=== PATIENT | female | born 1975 | race Caucasian/White ===

== ENCOUNTER 2016-10-29 13:11 | Emergency (ER) | payer BC, MEDICAID ==
--- NOTE | 2016-10-29 13:55 | EDM.PDOC ---
ED HPI GENERAL MEDICAL PROBLEM - General Chief Complaint: Skin Complaint Stated Complaint: [id number] SWOLLEN HAND INFECTION Time Seen by Provider: 10/29/16 13:40 Source of Information: Reports: Patient, RN, RN Notes Reviewed History Limitations: Reports: No Limitations - History of Present Illness INITIAL COMMENTS - FREE TEXT/NARRATIVE: C/O infection with pain and swelling to left dorsal hand. Onset approx. 3 days ago from an insect bite. Denies fever or chills. Denies axillary LAD. Has had a small amt. of yellow pus drainage. Onset: Gradual Duration: Getting Worse Location: Reports: Upper Extremity, Left Quality: Reports: Ache Severity: Moderate Improves with: Reports: None Worsens with: Reports: None Associated Symptoms: Reports: No Other Symptoms - Related Data Allergies Allergy/AdvReac Type Severity Reaction Status Date / Time No Known Allergies Allergy Verified 05/10/13 15:54 Past Medical History - Past Health History Medical/Surgical History: Denies Medical/Surgical History Respiratory History: Reports: Asthma Social & Family History - Family History Family Medical History: Noncontributory - Tobacco Use Smoking Status *Q: Never Smoker Second Hand Smoke Exposure: No - Caffeine Use Caffeine Use: Reports: Soda - Recreational Drug Use Recreational Drug Use: No - Living Situation & Occupation Living situation: Reports: with Family Occupation: Employed ED ROS GENERAL - Review of Systems Review Of Systems: ROS reveals no pertinent complaints other than HPI. ED EXAM, SKIN/RASH Exam: See Below Exam Limited By: No Limitations General Appearance: Alert, WD/WN, No Apparent Distress, Obese Throat/Mouth: Normal Inspection Head: Atraumatic, Normocephalic Neck: Normal Inspection, Supple, Non-Tender, Full Range of Motion Respiratory/Chest: No Respiratory Distress Cardiovascular: Regular Rate, Rhythm Extremities: Increased Warmth (dorsum of left hand with 3.5cm misbah. tender, swollen, nonfluctuant area with a 1cm round purulent yellow ulcerated center lesion without active drainage), Redness Neurological: Alert, Oriented, No Motor/Sensory Deficits Course - Orders/Labs/Meds Orders: Active Orders 24 hr Category Date Time Status CULTURE WOUND [RM] Stat Lab 10/29/16 13:49 Ordered Departure - Departure Time of Disposition: 13:56 Disposition: Home, Self-Care 01 Condition: good Clinical Impression: Infected insect bite of left hand Qualifiers: Encounter type: initial encounter Qualified Code(s): S60.562A - Insect bite ( nonvenomous) of left hand, initial encounter; L08.9 - Local infection of the skin and subcutaneous tissue, unspecified; W57.XXXA - Bitten or stung by nonvenomous insect and other nonvenomous arthropods, initial encounter - Discharge Information Instructions: Insect Bite, Hlow-ea-[id number], Cellulitis, Adult, Jnlm-[id number] Additional Instructions: Rx: Cephalexin 500mg Rx: Bactrim DS Rx: Bactroban oint. 2% Follow up in clinic if not improving in 3 days. Return to ER if worse at any time. - My Orders Last 24 Hours: My Active Orders 10/29/16 13:49 CULTURE WOUND [RM] Stat - Assessment/Plan Last 24 Hours: My Active Orders 10/29/16 13:49 CULTURE WOUND [RM] Stat
[2016-10-29 14:21] VITALS: BP 122/80
== END 2016-10-29 14:30 | disposition home or self-care (01) ==
LOC: DL.ED 13:11
DX: S60.562A Insect bite (nonvenomous) of left hand, initial encounter (principal); L08.9 Local infection of the skin and subcutaneous tissue, unspecified; W57.XXXA Bitten or stung by nonvenomous insect and other nonvenomous arthropods, initial encounter
CPT/HCPCS: 87070; 87077; 87186; 99283

== ENCOUNTER 2017-03-25 11:22 | Emergency (ER) | payer BC, MEDICAID ==
--- NOTE | 2017-03-25 12:07 | EDM.PDOC ---
ED HPI GENERAL MEDICAL PROBLEM - General Chief Complaint: Upper Extremity Injury/Pain Stated Complaint: FINGER IS PAINFUL, [id number] Time Seen by Provider: 03/25/17 12:01 Source of Information: Reports: Patient History Limitations: Reports: No Limitations - History of Present Illness INITIAL COMMENTS - FREE TEXT/NARRATIVE: 41 yo female c/o fall yesterday and today w/ right hand and wrist pain Onset Date: 03/24/17 Onset Time: 12:00 Duration: Day(s): Location: Reports: Upper Extremity, Right Quality: Reports: Ache Severity: Moderate Improves with: Reports: Rest Worsens with: Reports: None Context: Reports: Trauma Associated Symptoms: Reports: No Other Symptoms Right Hand Pain Score (Numeric/FACES): 3 - Related Data Allergies Allergy/AdvReac Type Severity Reaction Status Date / Time bee venom protein (honey bee) Allergy Intermediate Hives Verified 03/25/17 12:00 Home Meds: Home Meds EPINEPHrine [Epipen] 0.3 mg IM ONETIME 10/29/16 [History] FLUoxetine [PROzac] 20 mg PO DAILY 10/29/16 [History] Hydrocortisone [Procto-Med Hc] 30 gm TP ASDIRECTED 10/29/16 [History] Omeprazole [Omeprazole] 40 mg PO DAILY 10/29/16 [History] Phentermine HCl 37.5 mg PO ASDIRECTED 10/29/16 [History] Past Medical History - Past Health History Medical/Surgical History: Denies Medical/Surgical History Cardiovascular History: Reports: Hypertension Respiratory History: Reports: Asthma Psychiatric History: Reports: Depression Social & Family History - Family History Family Medical History: Noncontributory - Tobacco Use Smoking Status *Q: Unknown Ever Smoked Second Hand Smoke Exposure: No - Caffeine Use Caffeine Use: Reports: Soda - Recreational Drug Use Recreational Drug Use: No - Living Situation & Occupation Living situation: Reports: with Family Occupation: Employed Review of Systems - Review of Systems Review Of Systems: See Below Constitutional: Reports: No Symptoms Eyes: Reports: No Symptoms Ears: Reports: No Symptoms Nose: Reports: No Symptoms Mouth/Throat: Reports: No Symptoms Respiratory: Reports: No Symptoms Cardiovascular: Reports: No Symptoms GI/Abdominal: Reports: No Symptoms Genitourinary: Reports: No Symptoms Musculoskeletal: Reports: Hand Pain (right proximal), Other (wrist right) Skin: Reports: No Symptoms Neurological: Reports: No Symptoms Psychiatric: Reports: No Symptoms ED EXAM, GENERAL - Physical Exam Exam: See Below Exam Limited By: No Limitations General Appearance: Alert, WD/WN, No Apparent Distress Eye Exam: Bilateral Eye: PERRL Ears: Normal External Exam Nose: Normal Inspection Throat/Mouth: Normal Inspection, Normal Lips Head: Atraumatic, Normocephalic Neck: Normal Inspection, Supple Respiratory/Chest: No Respiratory Distress, Lungs Clear Cardiovascular: Normal Peripheral Pulses, Regular Rate, Rhythm Peripheral Pulses: 2+: Radial (L), Radial (R) GI/Abdominal: Normal Bowel Sounds, Soft Back Exam: Normal Inspection Extremities: Normal Inspection, Limited Range of Motion (right wrist pain w/ flexion and dorsal wrist tenderness) Neurological: Alert, Oriented, CN II-XII Intact, Normal Cognition Psychiatric: Normal Affect Skin Exam: Warm, Dry, Intact Lymphatic: No Adenopathy Course - Vital Signs Last Recorded V/S: Last Vital Signs Temp 36.6 C 03/25/17 11:55 Pulse 93 03/25/17 11:55 Resp 16 03/25/17 11:55 BP 118/83 03/25/17 11:55 Pulse Ox 100 03/25/17 11:55 - Orders/Labs/Meds Meds: Medications Discontinued Medications Generic Name Dose Route Start Last Admin Trade Name Shalomq PRN Reason Stop Dose Admin Acetaminophen 500 mg 03/25/17 12:15 03/25/17 12:39 Tylenol Extra Strength PO 03/25/17 12:16 500 mg ONETIME ONE Administration Departure - Departure Time of Disposition: 13:11 Disposition: Home, Self-Care 01 Condition: Good Clinical Impression: Fall Qualifiers: Encounter type: initial encounter Qualified Code(s): W19.XXXA - Unspecified fall, initial encounter Hand contusion Qualifiers: Encounter type: initial encounter Laterality: right Qualified Code(s): S60.221A - Contusion of right hand, initial encounter Contusion of wrist, right Qualifiers: Encounter type: initial encounter Qualified Code(s): S60.211A - Contusion of right wrist, initial encounter - Discharge Information Forms: ED Department Discharge Additional Instructions: Rest Elevate and Ice Pack TID X 15mins. For Pain Take : TYLENOL ES 500mg QID as needed F/U w/ PCP
[2017-03-25 12:08] VITALS: BP 118/83
[2017-03-25] MEDS ORDERED: Acetaminophen 500 MG Tab PO ONE (12:15)
--- NOTE | 2017-03-25 13:09 | CR ---
CLINICAL HISTORY: 41-year-old female injured in fall yesterday. INTERPRETATION: AP lateral view of the right hand unremarkable except for some early arthritic change s involving the first MCP, all interphalangeal and DIP joints. No sign of right hand fracture or dislocation.
--- NOTE | 2017-03-25 13:10 | CR ---
CLINICAL HISTORY: 41-year-old female injured in fall yesterday. INTERPRETATION: Three views right wrist and distal right forearm confirm some soft tissue swelling bu t... * no sign of underlying fracture/dislocation distal right radius/ulna or carpal bones of the wrist (l arge simple cyst proximal carpal row, triquetrum, noted incidentally). No foreign bodies.
== END 2017-03-25 13:20 | disposition home or self-care (01) ==
LOC: DL.ED 11:22
DX: S60.221A Contusion of right hand, initial encounter (principal); S60.211A Contusion of right wrist, initial encounter; W19.XXXA Unspecified fall, initial encounter; I10 Essential (primary) hypertension; F32.9 Major depressive disorder, single episode, unspecified; Z91.030 Bee allergy status
CPT/HCPCS: 73110; 73120; 99283; A9270

== ENCOUNTER 2020-05-27 19:19 | Emergency (ER) | payer BC ==
[2020-05-27] MEDS ORDERED: Acetaminophen/HYDROcodone 325-10 MG Tab PO ONE (19:20)
[2020-05-27 20:57] VITALS: BP 148/98; PULSE 106
[2020-05-27] MEDS: Ibuprofen 600 MG Tab PO ONE (21:08)
--- NOTE | 2020-05-27 21:46 | EDM.PDOC ---
ED HPI GENERAL MEDICAL PROBLEM - General Chief Complaint: Lower Extremity Injury/Pain Stated Complaint: LEFT ANKLE TWISTED ON ICE. Time Seen by Provider: 05/27/20 21:45 Source of Information: Reports: Patient History Limitations: Reports: No Limitations - History of Present Illness INITIAL COMMENTS - FREE TEXT/NARRATIVE: twisted ankle tonight Left Ankle Pain Score (Numeric/FACES): 6 - Related Data Allergies Allergy/AdvReac Type Severity Reaction Status Date / Time bee venom protein (honey bee) Allergy Intermediate Hives Verified 05/27/20 20:52 Home Meds: Home Meds EPINEPHrine [Epipen] 0.3 mg IM ONETIME 10/29/16 [History] FLUoxetine [PROzac] 20 mg PO DAILY 10/29/16 [History] Hydrocortisone [Procto-Med Hc] 30 gm TP ASDIRECTED 10/29/16 [History] Omeprazole 40 mg PO DAILY 10/29/16 [History] Phentermine HCl 37.5 mg PO ASDIRECTED 10/29/16 [History] Past Medical History - Past Health History Medical/Surgical History: Denies Medical/Surgical History Cardiovascular History: Reports: Hypertension Respiratory History: Reports: Asthma Gastrointestinal History: Reports: GERD Psychiatric History: Reports: Depression - Past Surgical History GI Surgical History: Reports: Appendectomy Female Surgical History: Reports: Section, Hysterectomy Musculoskeletal Surgical History: Reports: Carpal Tunnel Social & Family History - Family History Family Medical History: No Pertinent Family History - Tobacco Use Tobacco Use Status *Q: Never Tobacco User Second Hand Smoke Exposure: No - Caffeine Use Caffeine Use: Reports: Soda - Recreational Drug Use Recreational Drug Use: No - Living Situation & Occupation Living situation: Reports: with Family Occupation: Employed Review of Systems - Review of Systems Review Of Systems: Comprehensive ROS is negative, except as noted in HPI. ED EXAM, GENERAL - Physical Exam Exam: See Below Exam Limited By: No Limitations General Appearance: Alert, WD/WN, Mild Distress, Other (discomfort) Ears: Hearing Grossly Normal Throat/Mouth: Normal Voice, No Airway Compromise Head: Atraumatic Neck: Non-Tender, Full Range of Motion Respiratory/Chest: No Respiratory Distress Cardiovascular: Regular Rate, Rhythm GI/Abdominal: Soft, Non-Tender (Female) Exam: Deferred Rectal (Female) Exam: Deferred Extremities: Other (left ankle swollen lateral>, tender R/P, NV wnl, gait limited to pain) Neurological: Alert, Oriented, Normal Cognition, No Motor/Sensory Deficits Psychiatric: Normal Affect, Normal Mood Skin Exam: Warm, Dry, Normal Color Lymphatic: No Adenopathy Course - Vital Signs Last Recorded V/S: Last Vital Signs Temp 36.6 C 05/27/20 20:52 Pulse 106 H 05/27/20 20:52 Resp 21 H 05/27/20 20:52 BP 148/98 H 05/27/20 20:52 Pulse Ox 97 05/27/20 20:52 - Orders/Labs/Meds Meds: Medications Discontinued Medications Generic Name Dose Route Start Last Admin Trade Name Jose PRN Reason Stop Dose Admin Ibuprofen 600 mg 05/27/20 20:58 05/27/20 21:08 Motrin PO 05/27/20 20:59 600 mg ONETIME ONE Administration - Re-Assessments/Exams Free Text/Narrative Re-Assessment/Exam: 05/27/20 22:57 results discussed with pt. Departure - Departure Time of Disposition: 22:57 Disposition: Home, Self-Care 01 Condition: Good Clinical Impression: Ankle sprain Qualifiers: Encounter type: initial encounter Involved ligament of ankle: calcaneofibular ligament Laterality: left Qualified Code(s): S93.412A - Sprain of calcaneofibular ligament of left ankle, initial encounter - Discharge Information Instructions: Ankle Sprain, [id number] Forms: ED Department Discharge Additional Instructions: 1) elevate leg as much as possible next 48 hours 2) see clinic for possible MRI SCAN if no significant improvement by Saturday rx tk; lyndon 10 x 1 Sepsis Event Note (ED) - Evaluation Sepsis Screening Result: No Definite Risk - Focused Exam Vital Signs: Vital Signs Temp Pulse Resp BP Pulse Ox 05/27/20 20:52 36.6 C 106 H 21 H 148/98 H 97
--- NOTE | 2020-05-27 22:49 | CR ---
PROCEDURE INFORMATION: Exam: XR Left Ankle Exam date and time: 05/27/2020 9:00 PM Age: 44 years old Clinical indication: Pain and injury or trauma; Fall; Sprain or strain; Left; Ankle and foot; Injury date: 05/27/20; Additional info: Pain, fall TECHNIQUE: Imaging protocol: XR Left ankle. Views: 3 or more views. COMPARISON: No relevant prior studies available. FINDINGS: Bones/joints: There is a small separate ossification center distal to the tip of the fibula which is probably not acute. No acute fracture is appreciated. The ankle mortise is congruent. No ankle joint effusion is seen. There is a large plantar calcaneal spur. Soft tissues: There is soft tissue swelling. IMPRESSION: No convincing evidence for acute fracture. Follow-up radiographs may be helpful if there is ongoing clinical concern for occult fracture.
[2020-05-27] MEDS ORDERED: Acetaminophen/HYDROcodone 325-10 MG Tab ONE (22:58)
== END 2020-05-27 23:01 | disposition home or self-care (01) ==
LOC: DL.ED 19:19
DX: S93.412A Sprain of calcaneofibular ligament of left ankle, initial encounter (principal); I10 Essential (primary) hypertension; J45.909 Unspecified asthma, uncomplicated; F32.9 Major depressive disorder, single episode, unspecified; K21.9 Gastro-esophageal reflux disease without esophagitis; Z79.899 Other long term (current) drug therapy; Z91.030 Bee allergy status; X50.1XXA Overexertion from prolonged static or awkward postures, initial encounter
CPT/HCPCS: 73610; 99283; A9270; 99282

== ENCOUNTER 2020-09-28 18:25 | Emergency (ER) | payer BC ==
[2020-09-28] MEDS ORDERED: Amoxicillin/Clavulanate K 875-125 MG Tab PO ONE (19:08)
[2020-09-28 19:19] VITALS: BP 139/92; PULSE 86
--- NOTE | 2020-09-28 19:22 | EDM.PDOC ---
ED HPI GENERAL MEDICAL PROBLEM - General Stated Complaint: INJURY TO LEFT THUMB Time Seen by Provider: 09/28/20 19:00 Source of Information: Reports: Patient History Limitations: Reports: No Limitations - History of Present Illness INITIAL COMMENTS - FREE TEXT/NARRATIVE: This 45 yo female patient reports to the ED due to a cat bite to her left thumb that happened yesterday. The patient reports she has noticed increased swelling in the finger since the bite. The patient reports that the cat has not been vaccinated for rabies. Onset Date: 09/27/20 Duration: Day(s): Location: Reports: Upper Extremity, Left Quality: Reports: Ache, Throbbing Severity: Moderate Improves with: Reports: None Worsens with: Reports: None Context: Reports: Other Associated Symptoms: Reports: No Other Symptoms Left Finger-Thumb Pain Score (Numeric/FACES): 7 - Related Data Allergies Allergy/AdvReac Type Severity Reaction Status Date / Time bee venom protein (honey bee) Allergy Intermediate Hives Verified 05/27/20 20:52 Home Meds: Home Meds EPINEPHrine [Epipen] 0.3 mg IM ONETIME 10/29/16 [History] FLUoxetine [PROzac] 20 mg PO DAILY 10/29/16 [History] Hydrocortisone [Procto-Med Hc] 30 gm TP ASDIRECTED 10/29/16 [History] Omeprazole 40 mg PO DAILY 10/29/16 [History] Phentermine HCl 37.5 mg PO ASDIRECTED 10/29/16 [History] Past Medical History - Past Health History Medical/Surgical History: Denies Medical/Surgical History Cardiovascular History: Reports: Hypertension Respiratory History: Reports: Asthma Gastrointestinal History: Reports: GERD Psychiatric History: Reports: Depression - Past Surgical History GI Surgical History: Reports: Appendectomy Female Surgical History: Reports: Section, Hysterectomy Musculoskeletal Surgical History: Reports: Carpal Tunnel Social & Family History - Family History Family Medical History: No Pertinent Family History - Caffeine Use Caffeine Use: Reports: Soda - Living Situation & Occupation Living situation: Reports: with Family Occupation: Employed Review of Systems - Review of Systems Review Of Systems: Comprehensive ROS is negative, except as noted in HPI. ED EXAM, GENERAL - Physical Exam Exam: See Below Exam Limited By: No Limitations General Appearance: Alert, WD/WN, Mild Distress Eye Exam: Bilateral Eye: EOMI, Normal Inspection, PERRL Ears: Normal External Exam, Normal Canal, Hearing Grossly Normal, Normal TMs Nose: Normal Inspection, Normal Mucosa, No Blood Throat/Mouth: Normal Inspection, Normal Lips, Normal Teeth, Normal Gums, Normal Oropharynx, Normal Voice, No Airway Compromise Head: Atraumatic, Normocephalic Neck: Normal Inspection, Supple, Non-Tender, Full Range of Motion Respiratory/Chest: No Respiratory Distress, Lungs Clear, Normal Breath Sounds, No Accessory Muscle Use, Chest Non-Tender Cardiovascular: Normal Peripheral Pulses, Regular Rate, Rhythm, No Edema, No Gallop, No JVD, No Murmur, No Rub GI/Abdominal: Normal Bowel Sounds, Soft, Non-Tender, No Organomegaly, No Distention, No Abnormal Bruit, No Mass (Female) Exam: Deferred Rectal (Female) Exam: Deferred Back Exam: Normal Inspection, Full Range of Motion, NT Extremities: Arm Pain (left thumb ) Neurological: Alert, Oriented, CN II-XII Intact, Normal Cognition, Normal Gait, Normal Reflexes, No Motor/Sensory Deficits Psychiatric: Normal Affect, Normal Mood Skin Exam: Warm, Dry, Other (The patient has bite rogers to her left thumb with erythema to the area. There is no current drainage from the wound and no appearance of an abscess formation at the time of evaluation.) Lymphatic: No Adenopathy Course - Vital Signs Last Recorded V/S: Last Vital Signs Temp 36.2 C 09/28/20 19:10 Pulse 86 09/28/20 19:10 Resp 18 09/28/20 19:10 BP 139/92 H 09/28/20 19:10 Pulse Ox 92 L 09/28/20 19:10 - Orders/Labs/Meds Orders: Active Orders 24 hr Category Date Time Status Vaccines to be Administered [RC] PER UNIT ROUTINE Care 09/28/20 19:24 Ordered Meds: Medications Discontinued Medications Generic Name Dose Route Start Last Admin Trade Name Freq PRN Reason Stop Dose Admin Amoxicillin/Clavulanate Potassium 1 tab 09/28/20 19:08 Amoxicillin/Clavulanate K 875-125 Mg Tab PO 09/28/20 19:09 ONETIME ONE Rabies Immune Globulin 1,900 unit 09/28/20 19:23 Rabies Immune Globulin/Pf 300 Unit/Ml 1 Ml Sdv IM 09/28/20 19:24 ONETIME ONE Rabies Vaccine 2.5 unit 09/28/20 19:23 Rabies Vaccine (Juancarlos) 2.5 Unit Inj Kit IM 09/28/20 19:24 .ONCE ONE Departure - Departure Time of Disposition: 19:10 Disposition: Home, Self-Care 01 Condition: Fair Clinical Impression: Cellulitis Cat bite of left hand Qualifiers: Encounter type: initial encounter Qualified Code(s): S61.452A - Open bite of left hand, initial encounter - Discharge Information *PRESCRIPTION DRUG MONITORING PROGRAM REVIEWED*: Not Applicable *COPY OF PRESCRIPTION DRUG MONITORING REPORT IN PATIENT KRISTA: Not Applicable Instructions: Animal Bite, Adult, [id number], Cellulitis, Adult, [id number] Forms: ED Department Discharge Care Plan Goals: The patient was advised of the examination results during the visit. The patient was given an oral dose of Augmentin (875/125) while in the ED. The patient was discharged with a script for Augmentin (500/125) #20 to take 1 by mouth 2 times per day for 10 days. The patient was encouraged to cover the area with topical antibiotic ointment and a bandaid to protect from any additional infections. The patient was given the first dose of her rabies vaccine today. The patient should return for the remainder of her vaccine scheduled on days 3, 7 and 14. The patient should also return for the injection of her rabies immunoglobin tomorrow (to be brought to the ED by pharmacy tomorrow). The patient was encouraged to take Tylenol or ibuprofen as directed for temporary symptom relief. If the patient has any additional symptoms or concerns, the patient should either return to the emergency department or visit her primary care facility. Sepsis Event Note (ED) - Focused Exam Vital Signs: Vital Signs Temp Pulse Resp BP Pulse Ox 09/28/20 19:10 36.2 C 86 18 139/92 H 92 L - My Orders Last 24 Hours: My Active Orders 09/28/20 19:24 Vaccines to be Administered [RC] PER UNIT ROUTINE - Assessment/Plan Last 24 Hours: My Active Orders 09/28/20 19:24 Vaccines to be Administered [RC] PER UNIT ROUTINE
[2020-09-28] MEDS ORDERED: Rabies Immune Globulin/PF 300 UNIT/ML 1 ML SDV IM ONE (19:23)
[2020-09-28] MEDS ORDERED: Rabies Vaccine (Avian) 2.5 Unit Inj Kit IM ONE (19:23)
== END 2020-09-28 19:52 | disposition home or self-care (01) ==
LOC: DL.ACU 18:25 → DL.ED 18:25 → DL.ACU 19:52
DX: S61.052A Open bite of left thumb without damage to nail, initial encounter (principal); L03.012 Cellulitis of left finger; I10 Essential (primary) hypertension; J45.909 Unspecified asthma, uncomplicated; K21.9 Gastro-esophageal reflux disease without esophagitis; Z79.899 Other long term (current) drug therapy; Z23 Encounter for immunization; Z91.030 Bee allergy status; W55.01XA Bitten by cat, initial encounter
CPT/HCPCS: 90675; 99284; A9270

== ENCOUNTER 2020-11-28 10:28 | Emergency (ER) | payer BC | END 2020-11-28 11:29 | disposition left against medical advice (07) | LOC: DL.ED 10:28 | DX: M79.602 Pain in left arm (principal); Z53.21 Procedure and treatment not carried out due to patient leaving prior to being seen by health care provider ==

== ENCOUNTER 2021-05-03 18:00 | Emergency (ER) | payer BC ==
[2021-05-03 20:08] VITALS: BP 159/94; PULSE 99
--- NOTE | 2021-05-03 20:44 | CR ---
PROCEDURE INFORMATION: Exam: XR Right Hand Exam date and time: 05/03/2021 8:17 PM Age: 45 years old Clinical indication: Other: R/O fracture or dislocation; Punched tree TECHNIQUE: Imaging protocol: XR Right hand. Views: 1 or 2 views. Total images: 3 COMPARISON: No relevant prior studies available. FINDINGS: Bones/joints: Normal. Soft tissues: Edema IMPRESSION: No acute findings. No fracture
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
== END 2021-05-03 20:56 | disposition home or self-care (01) ==
LOC: DL.ED 18:00
DX: M79.641 Pain in right hand (principal); M79.89 Other specified soft tissue disorders; I10 Essential (primary) hypertension; J45.909 Unspecified asthma, uncomplicated; K21.9 Gastro-esophageal reflux disease without esophagitis; Z91.030 Bee allergy status; Z79.899 Other long term (current) drug therapy
CPT/HCPCS: 73120-RT; 99283-25

== ENCOUNTER 2022-01-28 10:13 | Emergency (ER) | payer BC ==
[2022-01-28] MEDS ORDERED: predniSONE 20 MG Tab PO ONE ×2 (10:14→10:38)
[2022-01-28] MEDS ORDERED: diphenhydrAMINE 25 MG Tab PO ONE (10:14)
[2022-01-28] MEDS ORDERED: Loratadine 10 MG Tab PO ONE (10:38)
[2022-01-28 10:39] VITALS: BP 142/108; PULSE 86
[2022-01-28] MEDS ORDERED: predniSONE 20 MG Tab ONE (11:04)
[2022-01-28] MEDS ORDERED: diphenhydrAMINE 25 MG Tab ONE (11:04)
== END 2022-01-28 11:15 | disposition home or self-care (01) ==
LOC: DL.ED 10:13
DX: T63.441A Toxic effect of venom of bees, accidental (unintentional), initial encounter (principal); I10 Essential (primary) hypertension; E66.9 Obesity, unspecified; Z68.34 Body mass index [BMI] 34.0-34.9, adult; Z91.030 Bee allergy status; Z79.899 Other long term (current) drug therapy; Z86.16 Personal history of COVID-19; Z90.49 Acquired absence of other specified parts of digestive tract; Z90.710 Acquired absence of both cervix and uterus
CPT/HCPCS: 99282; A9270-GY; J7512

== ENCOUNTER 2023-01-19 14:59 | Emergency (ER) | payer BC ==
[2023-01-19] MEDS ORDERED: Take Home: Clindamycin HCl 150 MG, 12 Cap Pack PO ONE (16:47)
[2023-01-19 17:46] VITALS: BP 130/94; PULSE 91
== END 2023-01-19 17:35 | disposition home or self-care (01) ==
LOC: DL.ED 14:59
DX: L02.412 Cutaneous abscess of left axilla (principal); J45.909 Unspecified asthma, uncomplicated; K21.9 Gastro-esophageal reflux disease without esophagitis; Z91.030 Bee allergy status; Z79.899 Other long term (current) drug therapy; Z86.16 Personal history of COVID-19
CPT/HCPCS: 99282; A9270

== ENCOUNTER 2024-10-02 20:06 | Emergency (ER) | payer SELFPAY ==
[2024-10-02 20:30] VITALS: BP 141/93; PULSE 88
[2024-10-02 20:54] LABS: BASOPHILS PERCENT AUTO 0.6 % (0.0-1.0); EOSINOPHILS PERCENT AUTO 2.6 % (1.0-3.0); HEMATOCRIT 43.3 % (37.0-47.0); HEMOGLOBIN 14.3 g/dL (12.0-16.0); LYMPHOCYTES PERCENT AUTO 36.3 % (20.5-50.1); MEAN CORPUSCULAR HEMOGLOBIN 28.8 pg (27.0-34.0); MEAN CORPUSCULAR VOLUME 87.1 fL (80-100); MONOCYTES PERCENT AUTO 9.9 % (2-8); NEUTROPHILS PERCENT AUTO 50.6 % (42.2-75.2); PLATELET COUNT,PLT 307 10^3/uL (150-450); RED BLOOD CELL COUNT 4.97 10^6/uL (4.2-5.4); WHITE BLOOD CELL COUNT,WBC 7.8 10^3/uL (5.0-10.0)
[2024-10-02] MEDS: Ketorolac 30 MG/ML SDV IM ONE (20:58)
[2024-10-02] MEDS: Take Home: Cyclobenzaprine 10 MG Tab, 4 Tab Pack PO ONE (21:57)
== END 2024-10-02 21:57 | disposition home or self-care (01) ==
LOC: DL.ED 20:06
DX: R07.82 Intercostal pain (principal); K21.9 Gastro-esophageal reflux disease without esophagitis; Z91.030 Bee allergy status; Z79.899 Other long term (current) drug therapy; Z86.16 Personal history of COVID-19; Z90.710 Acquired absence of both cervix and uterus; Z90.49 Acquired absence of other specified parts of digestive tract; Z87.891 Personal history of nicotine dependence; Z87.81 Personal history of (healed) traumatic fracture
CPT/HCPCS: 36415; 71111; 85025; 96372; 99283; 99285; A9270; J1885